=== PATIENT | male | born 1960 | race Caucasian/White ===

== ENCOUNTER → 2019-06-27 | Day surgery (SDC) | payer OTHER ==
[~2019-06-27] MED LIST: BUPIVACAINE 0.25% 30ML SDV INJ ONE; CEFAZOLIN SOD 1 GM/NS 50ML 100 ML IV ONE; CEFAZOLIN SOD 1 GM/NS 50ML 50 ML IV ONE; FENTANYL CITRATE/PF 100MCG/2 ML INJ ONE; LIDOCAINE HCL 2% LOCAL INJ 5 ML SDV VIAL INJ ONE; MIDAZOLAM HCL 2 MG/2 ML VIAL ONE; ONDANSETRON HCL INJ 2MG/ML 2ML 2 MG/ML VIAL ONE; PROPOFOL IV EMULSION 10 MG/ML 20 ML VIAL ONE; SEVOFLURANE INHAL SOLN 250 ML PEN BTL ONE
--- NOTE | 2019-06-27 08:49 | Operative Report ---
DATE OF PROCEDURE: 06/27/2019 SURGEON: Lefty Farr MD PREOPERATIVE DIAGNOSIS: Left upper thigh mass. POSTOPERATIVE DIAGNOSIS: Left upper thigh mass. PREOPERATIVE INDICATION: Treat disease, prevent complications related to growth of mass. PROCEDURES: Wide local excision of left thigh mass (CPT 97140) ANESTHESIA: General. ELECTRICAL CONTROL ASSEMBLER: Luther Cochran, surgical 1st gift shop assistant (needed due to complexity of case). FLUIDS: As per anesthesia. ESTIMATED BLOOD LOSS: 60 mL. DRAINS: None. COMPLICATIONS: None. SPECIMENS: 11 cm lipomatous mass in the left thigh. GRAFTS: None. FINDINGS: 11 cm lipomatous mass. PROCEDURE IN DETAIL: The patient was brought to the operating room and was put under general anesthesia with the laryngeal mask airway. He was sterilely prepped and draped in the usual fashion. A preprocedure pause was performed identifying the patient, use of perioperative antibiotics, intended procedure, and staff surgeon. A vertical incision was made around 5 cm in length. The subcutaneous tissues were divided. Skin flaps were raised bilaterally. Dissection was carried down to the level of the mass, which was located in the deep subcutaneous space. I circumferentially dissected the mass and ligated the blood supply with the electrocautery. The mass was removed in one piece, it was measured to be 11 cm in greatest dimension. I then irrigated the wound and then achieved hemostasis. The wound was closed in two layers with 3-0 Vicryl suture and 4-0 Monocryl suture. Dermabond dressings were applied. The patient tolerated the procedure well. Type of wound was type 1, clean. Lefty Farr MD [facility] [place]/[facility] /[id number]
[2019-06-27 09:00] VITALS: BP 124/76
== END | disposition home or self-care (01) ==
LOC: OR 05:44
PROVIDERS: ATTEND Surgery
DX: D17.24 Benign lipomatous neoplasm of skin and subcutaneous tissue of left leg (principal); H26.9 Unspecified cataract; M19.90 Unspecified osteoarthritis, unspecified site; N20.0 Calculus of kidney; Z90.5 Acquired absence of kidney; Z85.47 Personal history of malignant neoplasm of testis
CPT/HCPCS: 27337; 88304; J0690; J2001; J2250; J2405; J2704; J3010